=== PATIENT | male | born 1940 | race Caucasian/White ===

== ENCOUNTER 2022-07-23 17:12 | Emergency (ER) | payer MEDICARE, OTHER, SELFPAY ==
[2022-07-23] VITALS (9 sets, daily range): BP systolic 110–152; BP diastolic 75–89; PULSE 80–101; RESP 15–25; TEMP 36.4; O2SAT 94–97; BMI 26.0
--- NOTE | 2022-07-23 17:37 | DI.RAD.S_ITS ---
PROCEDURE: XR CHEST 1V INDICATIONS: chest pain TECHNIQUE: One view of the chest was acquired. COMPARISON: None. FINDINGS: Surgical changes and devices: Surgical hardware in lower cervical spine is seen. Lungs and pleura: Mild elevation of right hemidiaphragm is seen with right basilar atelectasis. No definite focal infiltrate. No pleural effusions or pneumothorax. Mediastinum: Mediastinal contours appear normal. Heart size is normal. Bones and chest wall: No suspicious bony lesions. Overlying soft tissues appear unremarkable. IMPRESSION: Right basilar atelectasis and elevation of right hemidiaphragm. No focal infiltrate, pleural effusion or pneumothorax. Dictated by: Raudel Ramirez M.D. on 07/23/2022 at 18:06 Approved by: Raudel Ramirez M.D. on 07/23/2022 at 18:06
[2022-07-23 18:00] LABS: Add Manual Diff / Slide Review NO; Basophils Absolute Auto 0 /uL (0-100); Basophils Percent Auto 0.9 % (0-2); Eosinophils Absolute Auto 0 /uL (0-450); Eosinophils Percent Auto 0.1 % (2-4); Hematocrit 42.1 % (41-53); Hemoglobin 14.7 g/dL (13.5-17.5); Lymphocytes Absolute Auto 1400 /uL (1100-4500); Lymphocytes Percent Auto 32.4 % (25-40); Mean Corpuscular HGB Conc 34.8 % (30-36); Mean Corpuscular Hemoglobin 35.1 PG (26-34); Mean Corpuscular Volume 100.7 fL (80-100); Monocytes Absolute Auto 400 /uL (0-900); Monocytes Percent Auto 8.5 % (3-14); Neutrophils Absolute Auto 2500 /uL (1500-7000); Neutrophils Percent Auto 58.1 % (50-75); Platelet Count 96 X10^3/uL (150-400); Red Blood Cell Count 4.18 X10^6/uL (4.5-5.9); Red Cell Distribution Width 14.5 % (11.6-14.8); White Blood Cell Count 4.4 X10^3/uL (4.5-11.0)
[2022-07-23 18:06] LABS: INR 1.4 (0.9-1.3); Prothrombin Time 15.6 SECONDS (10.1-12.7)
[2022-07-23 18:08] LABS: PTT Partial Thromboplastin Tim 32 SECONDS (26-36)
[2022-07-23 18:12] LABS: Alanine Aminotransferase 37 IU/L (<50); Albumin 4.5 g/dL (3.5-5.0); Albumin Globulin Ratio 1.4 (1.0-2.8); Alkaline Phosphatase 63 U/L (38-126); Aspartate Aminotransferase 31 IU/L (17-59); BUN Creatinine Ratio 21.7 (6-22); Bilirubin Total 1.3 mg/dL (0.2-1.3); Blood Urea Nitrogen 15 mg/dL (9-20); Calcium 8.9 mg/dL (8.4-10.2); Carbon Dioxide 23 mmol/L (22-32); Chloride 104 mmol/L (98-107); Creatine Kinase 71 U/L (55-170); Estimated Glomerular Filt Rate > 60 mL/min (>60); Globulin 3.3 g/dL (1.7-4.1); Glucose 87 mg/dL (80-110); HEMOLYSIS 23 (0-50); Lipase 131 U/L (23-300); Magnesium 1.9 mg/dL (1.6-2.3); Potassium 4.1 mmol/L (3.4-5.1); Sodium 136 mmol/L (137-145); Total Protein 7.8 g/dL (6.3-8.2)
[2022-07-23 18:23] LABS: Troponin I < 0.012 ng/mL (0.01-0.034)
--- NOTE | 2022-07-23 19:41 | PC.NURSE ---
Patient reports long standing hx of AFIB with ablations with most recent 4-5 months ago. Was changed from sotolol to metoprolol because last ablation was unsuccessful and has been on metoprolol for 4 days. Has been checking HR at home and averages 85-90. Reports hx of panic attacks but states this doesn't feel like his usual aura and almost didn't come in but decided to have it checked out. Denies pain, SOB, n/v and all other symptoms.
--- NOTE | 2022-07-23 21:25 | ED.CHESTPAIN ---
HPI - Chest Pain General Chief Complaint: Chest Pain Stated Complaint: Chest pain Time Seen by Provider: 07/23/22 21:24 History of Present Illness HPI narrative: 81-year-old gentleman with history of longstanding atrial fibrillation currently on metoprolol after sotalol has been discontinued presents with left-sided chest pain intermittently every 5 minutes. Nurse initiated orders were started. After waiting brief period of time patient chose to leave the department before full medical evaluation. Related Data Home Medications Medication Instructions Recorded Confirmed atorvastatin 20 mg tablet 20 mg PO BEDTIME 02/03/21 06/08/22 ferrous gluconate 240 mg (27 mg 240 mg PO DAILY 02/03/21 06/08/22 iron) tablet (Fergon) fluticasone fur. 100 mcg-umeclid 1 inh inhalation DAILY 02/03/21 06/08/22 62.5 mcg-vilant 25 mcg inhalat.powder (Trelegy Ellipta) triamcinolone acetonide 0.1 % 1 applic topical DAILY PRN 02/03/21 06/08/22 lotion valacyclovir 1 gram tablet 1,000 mg PO DAILY PRN 02/03/21 06/08/22 lorazepam 0.5 mg tablet 0.5 mg PO .PRN PRN dental 06/08/22 06/08/22 appointment potassium citrate 99 mg capsule mg PO 2XW 06/08/22 06/08/22 apixaban 5 mg tablet (Eliquis) 5 mg PO BID 07/23/22 07/23/22 metoprolol succinate 50 mg 50 mg PO DAILY 07/23/22 07/23/22 tablet,extended release 24 hr Allergies Allergy/AdvReac Type Severity Reaction Status Date / Time No Known Drug Allergies Allergy Verified 07/23/22 17:24 Review of Systems Review of Systems Narrative: Patient left prior to complete evaluation and history Patient History Medical History (Updated 07/23/22 @ 21:33 by Parris Oliveira MD) Atrial fibrillation (~2012) Cataracts, bilateral (~2014) Chicken pox (~1949) Chronic back pain (~2018) COPD (chronic obstructive pulmonary disease) (~2019) History of melanoma Hyperlipidemia Hypertension Mumps Shoulder pain (~2019) Thoracic back pain Tinnitus (~1967) Social History Smoking Status: Former smoker Smoking Status: Former smoker alcohol intake frequency: 0-2 drinks per day Alcohol type: hard liquor Substance Use Type: does not use Exam Initial Vital Signs Initial Vital Signs: Vital Signs Temperature 97.6 F 07/23/22 17:18 Pulse Rate 80 07/23/22 17:18 Respiratory Rate 16 07/23/22 17:18 Blood Pressure 122/84 07/23/22 17:18 Pulse Oximetry 97 07/23/22 17:18 Oxygen Delivery Method Room Air 07/23/22 17:18 Comfortable appearing, appropriate, able to walk out of the ointment the steady gait no chest pain and no dyspnea Course Orders Ordered: ED Orders 07/23/22 17:30 Complete Blood Count AUTO DIFF Stat Comprehensive Metabolic Panel Stat Lipase Stat Magnesium Stat PTT Partial Thromboplastin Rodrick Stat Prothrombin Time INR Stat Troponin & CK Cardiac Panel Stat 07/23/22 17:37 XR chest 1V Stat 07/23/22 17:41 EKG-12 Lead Stat Vital Signs Vital signs: Vital Signs - 8 hr 07/23/22 17:18 07/23/22 18:37 07/23/22 18:38 Temperature 97.6 F Pulse Rate 80 90 Respiratory Rate 16 25 H Blood Pressure 122/84 152/89 H Pulse Oximetry 97 Oxygen Delivery Method Room Air 07/23/22 18:38 07/23/22 19:00 07/23/22 19:01 Temperature Pulse Rate 91 H 101 H 101 H Respiratory Rate 18 17 18 Blood Pressure Pulse Oximetry 94 96 96 Oxygen Delivery Method 07/23/22 19:01 07/23/22 19:30 07/23/22 19:30 Temperature Pulse Rate 96 H Respiratory Rate 17 Blood Pressure 110/77 114/75 Pulse Oximetry 96 Oxygen Delivery Method 07/23/22 20:00 07/23/22 20:30 07/23/22 21:00 Temperature Pulse Rate 93 H 98 H 92 H Respiratory Rate 16 15 18 Blood Pressure Pulse Oximetry 97 97 96 Oxygen Delivery Method MDM - Chest Pain Lab Data 07/23/22 17:30 07/23/22 17:30 Labs: Lab Results 07/23/22 07/23/22 07/23/22 Range/Units 17:30 17:30 17:30 WBC 4.4 L (4.5-11.0) X10^3/uL RBC 4.18 L (4.5-5.9) X10^6/uL Hgb 14.7 (13.5-17.5) g/dL Hct 42.1 (41-53) % MCV 100.7 H (80-100) fL MCH 35.1 H (26-34) PG MCHC 34.8 (30-36) % RDW 14.5 (11.6-14.8) % Plt Count 96 L (150-400) X10^3/uL Neut % (Auto) 58.1 (50-75) % Lymph % (Auto) 32.4 (25-40) % [place] % (Auto) 8.5 (3-14) % Eos % (Auto) 0.1 L (2-4) % Baso % (Auto) 0.9 (0-2) % Neut # (Auto) 2500 (6079-5684) /uL Lymph # (Auto) 1400 (7542-8316) /uL [place] # (Auto) 400 (0-900) /uL Eos # (Auto) 0 (0-450) /uL Baso # (Auto) 0 (0-100) /uL PT 15.6 H (10.1-12.7) SECONDS INR 1.4 H (0.9-1.3) APTT 32 (26-36) SECONDS Sodium 136 L (137-145) mmol/L Potassium 4.1 (3.4-5.1) mmol/L Chloride 104 (98-107) mmol/L Carbon Dioxide 23 (22-32) mmol/L BUN 15 (9-20) mg/dL Creatinine 0.69 (0.66-1.25) mg/dL Estimated GFR > 60 (>60) mL/min BUN/Creatinine Ratio 21.7 (6-22) Glucose 87 (80-110) mg/dL Calcium 8.9 (8.4-10.2) mg/dL Magnesium 1.9 (1.6-2.3) mg/dL Total Bilirubin 1.3 (0.2-1.3) mg/dL AST 31 (17-59) IU/L ALT 37 (<50) IU/L Alkaline Phosphatase 63 (38-126) U/L Total Creatine Kinase 71 (55-170) U/L CK-MB (CK-2) TNP CK-MB (CK-2) Rel Index TNP Troponin I < 0.012 (0.01-0.034) ng/mL Total Protein 7.8 (6.3-8.2) g/dL Albumin 4.5 (3.5-5.0) g/dL Globulin 3.3 (1.7-4.1) g/dL Albumin/Globulin Ratio 1.4 (1.0-2.8) Lipase 131 (23-300) U/L Urine Dip Bedside Urine Glucose Negative Bedside Urine Bilirubin - Negative Bedside Urine Ketone - Negative Urine Specific [place] 1.030 Bedside Urine Occult Blood - Negative Bedside Urine pH 6.0 Bedside Urine Protein - Negative Bedside Urine Urobilinogen - Negative Bedside Urine Nitrite - Negative Bedside Urine Leukocytes - Negative Esterase MDM Narrative Medical decision making narrative: CC: Chest pain Complicating co-morbidities: chronic a fib, anticoagulated Data collected from: patient, Patient chose to leave department prior to additional evaluation including complete physical and exam. Lab Test results independently reviewed as above. Pertinent findings: CBC shows no acute anemia, white count of 4.4, platelets are 96 no prior labs are immediately available for comparison Chemistries are reassuring with normal creatinine Troponin is unremarkable Independently reviewed EKG as above Atrial fibrillation at a rate of 85, no acute ischemic changes Imaging studies independently reviewed: Chest x-ray shows basilar atelectasis without obvious congestive heart failure, bacterial infiltrate or pneumothorax Discussion: Patient left against medical advice prior to completing evaluation or discussing available labs and studies. Discharge Plan Departure Patient Disposition: Left Without Being Seen Clinical Impression: Patient left before evaluation by physician Chest pain Qualifiers: Chest pain type: unspecified Qualified Code(s): R07.9 - Chest pain, unspecified Atrial fibrillation Qualifiers: Atrial fibrillation type: longstanding persistent Qualified Code(s): I48.11 - Longstanding persistent atrial fibrillation Prescriptions: No Action potassium citrate 99 mg capsule PO 2XW lorazepam 0.5 mg tablet 0.5 mg PO .PRN PRN (Reason: dental appointment) Trelegy Ellipta 100-62.5-25 mcg blister with device 1 inh inhalation DAILY valacyclovir 1 gram tablet 1,000 mg PO DAILY PRN triamcinolone acetonide 0.1 % lotion 1 applic topical DAILY PRN atorvastatin 20 mg tablet 20 mg PO BEDTIME ferrous gluconate [Fergon] 240 mg (27 mg iron) tablet 240 mg PO DAILY Eliquis 5 mg tablet 5 mg PO BID metoprolol succinate 50 mg tablet extended release 24 hr 50 mg PO DAILY
== END 2022-07-23 21:27 | disposition left against medical advice (07) ==
PROVIDERS: Emergency Medicine; Emergency Provider Emergency Medicine; PCP Family Medicine
DX: R07.9 Chest pain, unspecified (principal)
CPT/HCPCS: 36415; 71045; 80053; 81003; 82550; 83690; 83735; 84484; 85025; 85610; 85730; 93005; 93010; 99284

== ENCOUNTER → 2023-07-23 08:48 | Outpatient (CLI) | payer MEDICARE, OTHER, SELFPAY ==
[2023-07-23 09:55] LABS: Add Manual Diff / Slide Review NO; Basophils Absolute Auto 0 /uL (0-100); Basophils Percent Auto 0.9 % (0-2); Eosinophils Absolute Auto 0 /uL (0-450); Eosinophils Percent Auto 0.1 % (2-4); Hematocrit 43.2 % (41-53); Hemoglobin 14.9 g/dL (13.5-17.5); Lymphocytes Absolute Auto 1300 /uL (1100-4500); Lymphocytes Percent Auto 27.6 % (25-40); Mean Corpuscular HGB Conc 34.6 % (30-36); Mean Corpuscular Hemoglobin 35.7 PG (26-34); Mean Corpuscular Volume 103.2 fL (80-100); Monocytes Absolute Auto 400 /uL (0-900); Monocytes Percent Auto 7.6 % (3-14); Neutrophils Absolute Auto 3000 /uL (1500-7000); Neutrophils Percent Auto 63.8 % (50-75); Platelet Count 97 X10^3/uL (150-400); Red Blood Cell Count 4.18 X10^6/uL (4.5-5.9); Red Cell Distribution Width 14.1 % (11.6-14.8); White Blood Cell Count 4.7 X10^3/uL (4.5-11.0)
[2023-07-23 10:45] LABS: Alanine Aminotransferase 31 IU/L (<50); Albumin 4.7 g/dL (3.5-5.0); Albumin Globulin Ratio 1.7 (1.0-2.8); Alkaline Phosphatase 55 U/L (38-126); Aspartate Aminotransferase 30 IU/L (17-59); Blood Urea Nitrogen 17 mg/dL (9-20); Calcium 8.8 mg/dL (8.4-10.2); Carbon Dioxide 28 mmol/L (22-32); Chloride 108 mmol/L (98-107); Cholesterol 170 mg/dL (140-199); Estimated Glomerular Filt Rate > 60 mL/min (>60); Globulin 2.8 g/dL (1.7-4.1); Glucose 96 mg/dL (80-110); HDL Cholesterol 88 mg/dL (40-60); HEMOLYSIS < 15 (0-50); LDL Cholesterol Calculated 69 mg/dL (<100); Potassium 4.7 mmol/L (3.4-5.1); Sodium 139 mmol/L (137-145); Total Protein 7.5 g/dL (6.3-8.2); Triglycerides 64 mg/dL (35-150)
[2023-07-23 11:11] LABS: TSH w/ Reflex to FT4 3.56 uIU/mL (0.47-4.68)
[2023-07-23 11:12] LABS: Prostate Specific Antigen Scrn 6.36 ng/mL (0.1-4.0)
[2023-07-23 11:42] LABS: Hep C Virus Ab w/Reflex Quant NEGATIVE s/c (NEGATIVE)
[2023-07-23 12:12] LABS: Creatinine Urine Random 107.21 mg/dL
[2023-07-23 12:16] LABS: Microalbumin Urine Random 0.8 mg/dL (0-1.6)
[2023-07-24 06:53] LABS: Apolipoprotein B 65 mg/dL (<90)
== END ==
PROVIDERS: PCP Family Medicine; Referring Provider Family Medicine; Visit Provider Family Medicine
DX: J44.9 Chronic obstructive pulmonary disease, unspecified (principal); I10 Essential (primary) hypertension; Z12.5 Encounter for screening for malignant neoplasm of prostate; E78.5 Hyperlipidemia, unspecified; I48.91 Unspecified atrial fibrillation
CPT/HCPCS: 36415; 80053; 80061; 82043; 82172; 82570; 84443; 85025; 86803; G0103

== ENCOUNTER 2024-01-07 15:12 | Emergency (ER) | payer MEDICARE, OTHER, SELFPAY ==
[2024-01-07] VITALS (27 sets, daily range): BP systolic 132–166; BP diastolic 65–96; PULSE 58–122; RESP 18–32; TEMP 36.8–39.4; O2SAT 90–95; BMI 26.9
--- NOTE | 2024-01-07 15:29 | DI.RAD.S_ITS ---
PROCEDURE: XR CHEST 1V INDICATIONS: chest pain TECHNIQUE: One view of the chest was acquired. COMPARISON: [facility], CR, XR CHEST 1V, 07/23/2022, 17:53. FINDINGS: Surgical changes and devices: ACDF. Lungs and pleura: Left upper lung zone consolidation. Elevation of the right hemidiaphragm. Mediastinum: Mediastinal contours appear normal. Heart size is normal. Bones and chest wall: No suspicious bony lesions. Overlying soft tissues appear unremarkable. IMPRESSION: Left upper lung zone consolidation, concerning for pneumonia. Recommend follow-up in 1-2 months with chest x-ray to ensure resolution. Dictated by: Jose Raymundo M.D. on 01/07/2024 at 16:08 Approved by: Jose Raymundo M.D. on 01/07/2024 at 16:08
--- NOTE | 2024-01-07 15:31 | EKG_ITS ---
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
[2024-01-07 16:18] LABS: Add Manual Diff / Slide Review NO; Basophils Absolute Auto 0 /uL (0-100); Basophils Percent Auto 0.3 % (0-2); Eosinophils Absolute Auto 0 /uL (0-450); Hematocrit 44.3 % (41-53); Hemoglobin 15.3 g/dL (13.5-17.5); INR 1.8 (0.9-1.3); Lymphocytes Absolute Auto 500 /uL (1100-4500); Lymphocytes Percent Auto 7.9 % (25-40); Mean Corpuscular HGB Conc 34.6 % (30-36); Mean Corpuscular Hemoglobin 35.1 PG (26-34); Mean Corpuscular Volume 101.4 fL (80-100); Monocytes Absolute Auto 500 /uL (0-900); Monocytes Percent Auto 6.9 % (3-14); Neutrophils Absolute Auto 5600 /uL (1500-7000); Neutrophils Percent Auto 84.9 % (50-75); Platelet Count 100 X10^3/uL (150-400); Prothrombin Time 19.8 SECONDS (9.4-12.5); Red Blood Cell Count 4.37 X10^6/uL (4.5-5.9); Red Cell Distribution Width 13.5 % (11.6-14.8); White Blood Cell Count 6.6 X10^3/uL (4.5-11.0)
[2024-01-07 16:21] LABS: PTT Partial Thromboplastin Tim 41 SECONDS (25.1-36.5)
[2024-01-07 16:22] LABS: Alanine Aminotransferase 49 IU/L (<50); Albumin 4.4 g/dL (3.5-5.0); Albumin Globulin Ratio 1.1 (1.0-2.8); Alkaline Phosphatase 63 U/L (38-126); Aspartate Aminotransferase 72 IU/L (17-59); BUN Creatinine Ratio 18.9 (6-22); Bilirubin Total 1.6 mg/dL (0.2-1.3); Blood Urea Nitrogen 18 mg/dL (9-20); Calcium 8.8 mg/dL (8.4-10.2); Carbon Dioxide 23 mmol/L (22-32); Chloride 98 mmol/L (98-107); Creatine Kinase 172 U/L (55-170); Estimated Glomerular Filt Rate > 60 mL/min (>60); Globulin 3.9 g/dL (1.7-4.1); Glucose 124 mg/dL (80-110); HEMOLYSIS < 15 (0-50); Lipase 98 U/L (23-300); Magnesium 2.2 mg/dL (1.6-2.3); Sodium 130 mmol/L (137-145); Total Protein 8.3 g/dL (6.3-8.2)
[2024-01-07 16:34] LABS: NT-proBNP (BNP-Adult 18+) 2420 pg/mL (<450); Troponin I < 0.012 ng/mL (0.01-0.034)
[2024-01-07 16:36] LABS: Adenovirus Not Detected (Not Detect); B. parapertussis Not Detected (Not Detecte); Bordetella pertussis Not Detected (Not Detect); Chlamydophila pneumoniae Not Detected (Not Detect); Coronavirus 229E Not Detected (Not Detect); Coronavirus HKU1 Not Detected (Not Detect); Coronavirus NL 63 Not Detected (Not Detect); Coronavirus OC43 Not Detected (Not Detect); Human Metapneumovirus Not Detected (Not Detect); Human Rhinovirus/Enterovirus Not Detected (Not Detect); Influenza A Not Detected (Not Detect); Influenza B Not Detected (Not Detect); Mycoplasma pneumoniae Not Detected (Not Detect); Parainfluenza Virus 1 Not Detected (Not Detect); Parainfluenza Virus 2 Not Detected (Not Detect); Parainfluenza Virus 3 Not Detected (Not Detect); Parainfluenza Virus 4 Not Detected (Not Detect); Respiratory Syncytial Virus Not Detected (Not Detect); SARS- CoV-2 Not Detected (Not Detecte)
--- NOTE | 2024-01-07 19:30 | PC.NURSE ---
Dr Ortega notified of fever and updated VS. Orders received for BC, lactic acid, resp panel.
[2024-01-07] MEDS: PIPERACILLIN/TAZO 4.5 GM in SODIUM CHLORIDE 0.9% 100 ML IV (19:48)
--- NOTE | 2024-01-07 20:12 | ED.WEAKNESS ---
HPI - Weakness General Chief complaint: Weakness Stated complaint: weakness Time Seen by Provider: 01/07/24 19:31 Source: EMS Mode of arrival: EMS History of Present Illness HPI Narrative: Patient 83-year-old male history of COPD atrial fibrillation on Eliquis presenting today with 4 days of fever and increasing weakness. He does live home alone but has family right next door. Reports he has had a temperature of 103?. He denies any pain or nausea. He does report that he has a productive cough. No abdominal pain he was not pass out. Related Data Home Medications Medication Instructions Recorded Confirmed atorvastatin 20 mg tablet 20 mg PO BEDTIME 02/03/21 07/24/23 ferrous gluconate 240 mg (27 mg 240 mg PO DAILY 02/03/21 07/24/23 iron) tablet (Fergon) lorazepam 0.5 mg tablet 0.5 mg PO .PRN PRN dental 06/08/22 07/24/23 appointment apixaban 5 mg tablet (Eliquis) 5 mg PO BID 07/23/22 07/24/23 metoprolol succinate 50 mg 50 mg PO DAILY 07/23/22 07/24/23 tablet,extended release 24 hr Magnesium OTC PO 07/24/23 07/24/23 Potassium OTC PO 07/24/23 carboxymethylcellulose 0.5 drp EYE-BOTH 07/24/23 07/24/23 %-glycerin 0.9 % eye drops (Refresh Optive) fluorouracil 5 % topical cream 1 applic topical BID 07/24/23 07/24/23 Previous Rx's Medication Instructions Recorded triamcinolone acetonide 0.1 % 1 applic topical DAILY #60 mL 07/16/23 lotion fluticasone fur. 100 mcg-umeclid 1 inh PO DAILY #180 ea 08/05/23 62.5 mcg-vilant 25 mcg inhalat.powder (Trelegy Ellipta) valacyclovir 1 gram tablet 1,000 mg PO DAILY PRN As needed 12/02/23 for outbreak #30 tabs amoxicillin 500 mg capsule 1,000 mg (2 x 500 mg) PO TID 7 01/07/24 days #42 caps azithromycin 250 mg tablet See Rx Instructions PO .COMPLEX #6 01/07/24 tabs Allergies Allergy/AdvReac Type Severity Reaction Status Date / Time No Known Drug Allergies Allergy Verified 01/07/24 15:19 Patient History Medical History (Updated 01/07/24 @ 21:58 by Alaina Ortega DO) Thrombocytopenia History of melanoma Shoulder pain (~2019) Chronic back pain (~2018) Mumps Chicken pox (~1949) Tinnitus (~1967) Cataracts, bilateral (~2014) COPD (chronic obstructive pulmonary disease) (~2019) Thoracic back pain Hypertension Hyperlipidemia Atrial fibrillation (~2012) Social History Smoking Status: Former smoker Smoking Status: Former smoker alcohol intake frequency: 0-2 drinks per day Alcohol type: hard liquor Substance Use Type: does not use Exam Initial Vital Signs Initial Vital Signs: Vital Signs Pulse Rate 60 01/07/24 15:16 Pulse Oximetry 93 01/07/24 15:16 GENERAL: Alert 83-year-old male and in [no acute] distress. HEENT: Head atraumatic,EOMI, pupils reactive, face symmetric, [moist] mucous membranes CARDIOVASCULAR: Regular rate and rhythm without murmurs, rubs or gallops. RESPIRATORY: Dyspneic decreased breath sounds bilaterally no wheezing rales or rhonchi ABDOMEN: Soft, nontender. Normoactive bowel sounds all 4 quadrants. No guarding or rebound. EXTREMITIES: Normal range of motion, no clubbing or edema. Neurovascularly intact NEUROLOGICAL: Alert and oriented x4.Normal gait and speech. Cranial nerves II through XII grossly intact. SKIN: Warm, dry, no laceration, no petechiae, no rashes or lesions. Course Orders Ordered: ED Orders 01/07/24 19:50 Blood Culture Stat Lactate (Lactic Acid) Stat 01/07/24 20:31 Ictotest Urine Stat Urine Culture Stat Urine Microscopic Stat Discontinued Medications Acetaminophen (Acetaminophen 325 Mg Tablet) 975 mg PO NOW ONE Stop: 01/07/24 20:42 Last Admin: 01/07/24 20:55 Dose: 975 mg Documented By: THANG Albuterol (Albuterol Hfa Prepack) 1 box MISC DIRECTED ONE Stop: 01/07/24 21:50 Last Admin: 01/07/24 21:58 Dose: 1 box Documented By: SHEILA Albuterol/Ipratropium (Albuterol/Ipratropium 3 Ml Ampul) 3 ml INH NOW ONE Stop: 01/07/24 21:17 Last Admin: 01/07/24 21:22 Dose: 3 ml Documented By: SHEILA Amoxicillin (Amoxicillin 250 Mg Capsule) 1,000 mg PO NOW ONE Stop: 01/07/24 21:44 Last Admin: 01/07/24 22:06 Dose: 1,000 mg Documented By: LAVONNE Azithromycin (Azithromycin 250 Mg Tablet) 500 mg PO NOW ONE Stop: 01/07/24 21:44 Last Admin: 01/07/24 22:06 Dose: 500 mg Documented By: LAVONNE Piperacillin Sod/Tazobactam (Sod 4.5 gm/ Sodium Chloride) 100 mls @ 200 mls/hr IV NOW ONE Stop: 01/07/24 19:32 Last Infusion: 01/07/24 20:23 Dose: Infused Documented By: Admin: 01/07/24 19:48 Dose: 200 mls/hr Documented By: LAVONNE Vital Signs Vital signs: Vital Signs - 8 hr 01/07/24 19:25 01/07/24 19:30 01/07/24 19:31 Temperature 102.9 F H Pulse Rate 100 H 90 79 Respiratory Rate 28 H 32 H 29 H Blood Pressure Pulse Oximetry 93 93 92 Oxygen Delivery Method Room Air Oxygen Flow Rate Fraction of Inspired Oxygen 01/07/24 19:31 01/07/24 20:00 01/07/24 20:00 Temperature Pulse Rate 73 Respiratory Rate Blood Pressure 156/85 H 134/66 Pulse Oximetry 93 Oxygen Delivery Method Oxygen Flow Rate Fraction of Inspired Oxygen 01/07/24 20:24 01/07/24 20:24 01/07/24 20:30 Temperature Pulse Rate 122 H Respiratory Rate Blood Pressure 151/96 H 146/66 H Pulse Oximetry Oxygen Delivery Method Oxygen Flow Rate Fraction of Inspired Oxygen 01/07/24 20:30 01/07/24 20:55 01/07/24 21:00 Temperature 102.9 F H Pulse Rate 70 Respiratory Rate Blood Pressure 166/82 H Pulse Oximetry 93 Oxygen Delivery Method Oxygen Flow Rate Fraction of Inspired Oxygen 01/07/24 21:00 01/07/24 21:15 01/07/24 21:22 Temperature 102.9 F H Pulse Rate 74 108 H Respiratory Rate 20 Blood Pressure Pulse Oximetry 93 90 L Oxygen Delivery Method Room Air Oxygen Flow Rate 0 Fraction of Inspired Oxygen 01/07/24 21:30 01/07/24 21:31 01/07/24 21:31 Temperature Pulse Rate 91 H 90 Respiratory Rate Blood Pressure 146/70 H Pulse Oximetry 93 93 Oxygen Delivery Method Oxygen Flow Rate Fraction of Inspired Oxygen 01/07/24 21:39 01/07/24 21:39 01/07/24 21:41 Temperature Pulse Rate 102 H Respiratory Rate 22 Blood Pressure 140/65 Pulse Oximetry 91 93 Oxygen Delivery Method Oxygen Flow Rate Fraction of Inspired Oxygen 01/07/24 22:20 Temperature 98.2 F Pulse Rate Respiratory Rate Blood Pressure Pulse Oximetry Oxygen Delivery Method Oxygen Flow Rate Fraction of Inspired Oxygen MDM - Weakness Lab Data 01/07/24 15:00 01/07/24 15:00 Labs: Lab Results 01/07/24 01/07/24 01/07/24 Range/Units 15:00 15:36 19:50 WBC 6.6 (4.5-11.0) X10^3/uL RBC 4.37 L (4.5-5.9) X10^6/uL Hgb 15.3 (13.5-17.5) g/dL Hct 44.3 (41-53) % MCV 101.4 H (80-100) fL MCH 35.1 H (26-34) PG MCHC 34.6 (30-36) % RDW 13.5 (11.6-14.8) % Plt Count 100 L (150-400) X10^3/uL Neut % (Auto) 84.9 H (50-75) % Lymph % (Auto) 7.9 L (25-40) % [place] % (Auto) 6.9 (3-14) % Eos % (Auto) 0.0 L (2-4) % Baso % (Auto) 0.3 (0-2) % Neut # (Auto) 5600 (7496-1985) /uL Lymph # (Auto) 500 L (4825-5148) /uL [place] # (Auto) 500 (0-900) /uL Eos # (Auto) 0 (0-450) /uL Baso # (Auto) 0 (0-100) /uL PT 19.8 H (9.4-12.5) SECONDS INR 1.8 H (0.9-1.3) APTT 41 H (25.1-36.5) SECONDS Sodium 130 L (137-145) mmol/L Potassium 4.0 (3.4-5.1) mmol/L Chloride 98 (98-107) mmol/L Carbon Dioxide 23 (22-32) mmol/L BUN 18 (9-20) mg/dL Creatinine 0.95 (0.66-1.25) mg/dL Estimated GFR > 60 (>60) mL/min BUN/Creatinine Ratio 18.9 (6-22) Glucose 124 H (80-110) mg/dL Lactate 1.4 (0.7-2.1) mmol/L Calcium 8.8 (8.4-10.2) mg/dL Magnesium 2.2 (1.6-2.3) mg/dL Total Bilirubin 1.6 H (0.2-1.3) mg/dL AST 72 H (17-59) IU/L ALT 49 (<50) IU/L Alkaline Phosphatase 63 (38-126) U/L Total Creatine Kinase 172 H (55-170) U/L Troponin I < 0.012 (0.01-0.034) ng/mL NT-Pro-B Natriuret Pep 2420 H (<450) pg/mL Total Protein 8.3 H (6.3-8.2) g/dL Albumin 4.4 (3.5-5.0) g/dL Globulin 3.9 (1.7-4.1) g/dL Albumin/Globulin Ratio 1.1 (1.0-2.8) Lipase 98 (23-300) U/L Ur Bilirubin Confirm (Negative) Urine RBC (0-5/HPF) Urine WBC (0-5/HPF) Ur Squamous Epith Cells (0-5/HPF) Urine Bacteria (None) Ur Culture Indicated? Vol Urine Centrifuged Chlamy pneumoniae PCR Not detected (Not Detect) Adenovirus (PCR) Not detected (Not Detect) B. pertussis DNA (PCR) Not detected (Not Detect) B.parapertussis DNA PCR Not detected (Not Detecte) Coronavirus OC43 (PCR) Not detected (Not Detect) Coronavirus HKU1 (PCR) Not detected (Not Detect) Coronavirus 229E (PCR) Not detected (Not Detect) SARS-CoV-2 (PCR) Not detected (Not Detecte) Coronavirus NL63 (PCR) Not detected (Not Detect) Human Metapneumovir PCR Not detected (Not Detect) Influenza Type A (PCR) Not detected (Not Detect) Influenza Type B (PCR) Not detected (Not Detect) M. pneumoniae (PCR) Not detected (Not Detect) Parainfluenza 1 (PCR) Not detected (Not Detect) Parainfluenza 2 (PCR) Not detected (Not Detect) Parainfluenza 3 (PCR) Not detected (Not Detect) Parainfluenza 4 (PCR) Not detected (Not Detect) RSV (PCR) Not detected (Not Detect) Entero/Rhino (PCR) Not detected (Not Detect) 01/07/24 Range/Units 20:31 WBC (4.5-11.0) X10^3/uL RBC (4.5-5.9) X10^6/uL Hgb (13.5-17.5) g/dL Hct (41-53) % MCV (80-100) fL MCH (26-34) PG MCHC (30-36) % RDW (11.6-14.8) % Plt Count (150-400) X10^3/uL Neut % (Auto) (50-75) % Lymph % (Auto) (25-40) % [place] % (Auto) (3-14) % Eos % (Auto) (2-4) % Baso % (Auto) (0-2) % Neut # (Auto) (0544-2507) /uL Lymph # (Auto) (1123-9546) /uL [place] # (Auto) (0-900) /uL Eos # (Auto) (0-450) /uL Baso # (Auto) (0-100) /uL PT (9.4-12.5) SECONDS INR (0.9-1.3) APTT (25.1-36.5) SECONDS Sodium (137-145) mmol/L Potassium (3.4-5.1) mmol/L Chloride (98-107) mmol/L Carbon Dioxide (22-32) mmol/L BUN (9-20) mg/dL Creatinine (0.66-1.25) mg/dL Estimated GFR (>60) mL/min BUN/Creatinine Ratio (6-22) Glucose (80-110) mg/dL Lactate (0.7-2.1) mmol/L Calcium (8.4-10.2) mg/dL Magnesium (1.6-2.3) mg/dL Total Bilirubin (0.2-1.3) mg/dL AST (17-59) IU/L ALT (<50) IU/L Alkaline Phosphatase (38-126) U/L Total Creatine Kinase (55-170) U/L Troponin I (0.01-0.034) ng/mL NT-Pro-B Natriuret Pep (<450) pg/mL Total Protein (6.3-8.2) g/dL Albumin (3.5-5.0) g/dL Globulin (1.7-4.1) g/dL Albumin/Globulin Ratio (1.0-2.8) Lipase (23-300) U/L Ur Bilirubin Confirm Positive H (Negative) Urine RBC 5-10/hpf H (0-5/HPF) Urine WBC 5-10/hpf H (0-5/HPF) Ur Squamous Epith Cells 5-10 /hpf H (0-5/HPF) Urine Bacteria Moderate (10-30) H (None) Ur Culture Indicated? Specimen cultured Vol Urine Centrifuged 10ml (spun) Chlamy pneumoniae PCR (Not Detect) Adenovirus (PCR) (Not Detect) B. pertussis DNA (PCR) (Not Detect) B.parapertussis DNA PCR (Not Detecte) Coronavirus OC43 (PCR) (Not Detect) Coronavirus HKU1 (PCR) (Not Detect) Coronavirus 229E (PCR) (Not Detect) SARS-CoV-2 (PCR) (Not Detecte) Coronavirus NL63 (PCR) (Not Detect) Human Metapneumovir PCR (Not Detect) Influenza Type A (PCR) (Not Detect) Influenza Type B (PCR) (Not Detect) M. pneumoniae (PCR) (Not Detect) Parainfluenza 1 (PCR) (Not Detect) Parainfluenza 2 (PCR) (Not Detect) Parainfluenza 3 (PCR) (Not Detect) Parainfluenza 4 (PCR) (Not Detect) RSV (PCR) (Not Detect) Entero/Rhino (PCR) (Not Detect) Urine Dip Bedside Urine Glucose 100 mg/dl Bedside Urine Bilirubin + 1 Bedside Urine Ketone +++ 80 Urine Specific [place] 1.025 Bedside Urine Occult Blood +++ Bedside Urine pH 6.0 Bedside Urine Protein +++ 300 Bedside Urine Urobilinogen +/- 1mg Bedside Urine Nitrite - Negative Bedside Urine Leukocytes +/- 15 Esterase Imaging Data Chest x-ray: Radiologist Impression: PROCEDURE: XR CHEST 1V INDICATIONS: chest pain TECHNIQUE: One view of the chest was acquired. COMPARISON: [facility], CR, XR CHEST 1V, 07/23/2022, 17:53. FINDINGS: Surgical changes and devices: ACDF. Lungs and pleura: Left upper lung zone consolidation. Elevation of the right hemidiaphragm. Mediastinum: Mediastinal contours appear normal. Heart size is normal. Bones and chest wall: No suspicious bony lesions. Overlying soft tissues appear unremarkable. IMPRESSION: Left upper lung zone consolidation, concerning for pneumonia. Recommend follow-up in 1-2 months with chest x-ray to ensure resolution. Dictated by: Jose Raymundo M.D. on 01/07/2024 at 16:08 ECG Data Attestation: I personally reviewed and interpreted this ECG as follows: Interpretation: Atrial fibrillation rate 81 PVC noted right bundle-branch block noted similar to previous EKGs MDM Narrative Medical decision making narrative: MDM CC: Weakness Complicating co-morbidities: COPD atrial fibrillation on Eliquis, hypertension coronary artery disease melanoma Data collected from: Sister also at bedside Medical records reviewed: Prior PCP visit in July of 2023 Differential considered: Viral illness pneumonia CHF ED Exam documented above, pertinent findings include: Decreased breath sounds bilaterally slightly confused no peripheral edema Lab Test results independently reviewed as above. Pertinent findings: Lactate 1.4 WBC 6.6 Respiratory panel negative Bilirubin 1.6 AST 72 ALT 49 Troponin negative BNP is 2420 no priors to compare Independently reviewed EKG as above atrial fibrillation without ischemia Imaging studies independently reviewed: Left upper lobe pneumonia Consultations: none Treatments: Zosyn, amoxicillin azithromycin DuoNeb Re-evaluations: At the time of my evaluation after multiple hours waiting in the ED patient was dyspneic. He received DuoNeb treatment which helped significantly. He ambulated in the ED with a walker O2 sat remained 92% he was able to have conversation and appeared well Discussion: Patient 83 years old multiple comorbidities presenting today with weakness cough. He is found to have a left upper lobe pneumonia. He is not hypoxic or hypotensive he has a normal lactate and normal leukocytosis. Port score severity suggest he could be treated as an outpatient. He was mildly tachycardic with heart rate of 120 at the time he had a temperature heart rate has come down. Patient wants to go home he has sisters who live close by. Instructed sister's to return if worsening confusion PSI/PORT Score: Pneumonia Severity Index for CAP from [employer]Disconnect on 01/07/2024 All calculations should be rechecked by clinician prior to use RESULT SUMMARY: 83 points Risk Class III, 0.9-2.8% mortality. Outpatient or inpatient treatment, depending on clinical judgment. INPUTS: Age ?> 83 years Sex ?> 0 = Male [facility] resident ?> 0 = No Neoplastic disease ?> 0 = No Liver disease history ?> 0 = No CHF history ?> 0 = No Cerebrovascular disease history ?> 0 = No Renal disease history ?> 0 = No Altered mental status ?> 0 = No Respiratory rate >=0 breaths/min ?> 0 = No Systolic blood pressure <90 mmHg ?> 0 = No Temperature <35?C (95?F) or >39.9?C (103.8?F) ?> 0 = No Pulse >=25 beats/min ?> 0 = No pH <7.35 ?> 0 = No BUN >=0 mg/dL or >=1 mmol/L ?> 0 = No Sodium <130 mmol/L ?> 0 = No Glucose >=50 mg/dL or >=4 mmol/L ?> 0 = No Hematocrit <30% ?> 0 = No Partial pressure of oxygen <60 mmHg or <8 kPa ?> 0 = No Pleural effusion on x-ray ?> 0 = No Discharge Plan Departure Patient Disposition: Home Clinical Impression: Pneumonia Instructions: DI for Pneumonia -- Adult Activity Restrictions/Additional Instructions: *You have been diagnosed with pneumonia *What to do: At this time you do have pneumonia. Please stay hydrated eat as tolerated. Recommend Gatorade or Gatorade like product. *Continue to take medications as directed Albuterol 1-2 puffs with spacer every 4 hours if needed for shortness of breath Amoxicillin 1000 mg 3 times a day for 7 days Azithromycin take as directed *Follow up with your primary care provider in 2-3 days or call [phone] *Return to ER if you should have increasing shortness of breath confusion decreased in fluid intake [or] any new, worsening or concerning symptoms Prescriptions: New amoxicillin 500 mg capsule 1,000 mg PO TID 7 Days Qty: 42 0RF azithromycin 250 mg tablet See Rx Instructions PO .COMPLEX Qty: 6 0RF Rx Instructions: For 250 mg dose pack: take 500 mg today (day 1), then 250 mg for 4 days (days 2-5) No Action Trelegy Ellipta 100-62.5-25 mcg blister with device 1 inh PO DAILY Qty: 180 3RF valacyclovir 1 gram tablet 1,000 mg PO DAILY PRN (Reason: As needed for outbreak) Qty: 30 2RF lorazepam 0.5 mg tablet 0.5 mg PO .PRN PRN (Reason: dental appointment) Potassium OTC PO Refresh Optive 0.5-0.9 % drops EYE-BOTH Magnesium OTC PO fluorouracil 5 % cream 1 applic topical BID atorvastatin 20 mg tablet 20 mg PO BEDTIME ferrous gluconate [Fergon] 240 mg (27 mg iron) tablet 240 mg PO DAILY triamcinolone acetonide 0.1 % lotion 1 applic topical DAILY Qty: 60 2RF Eliquis 5 mg tablet 5 mg PO BID metoprolol succinate 50 mg tablet extended release 24 hr 50 mg PO DAILY Referrals: Mk Rudolph MD [Primary Care Provider] - Stand Alone Forms: Patient Portal/API/Survey
[2024-01-07 20:14] LABS: Lactate (Lactic Acid) 1.4 mmol/L (0.7-2.1)
[2024-01-07] MEDS: ACETAMINOPHEN 325 MG TABLET 975 MG PO (20:55)
[2024-01-07 20:56] LABS: Ictotest Urine Positive (Negative)
[2024-01-07 20:57] LABS: Bacteria Urine Moderate (10-30); Culture Indicated Urine Specimen Cultured; RBC Urine 5-10/HPF (0-5/HPF); Squamous Epithelial Cell Urine 5-10 /HPF (0-5/HPF); Urine Volume 10mL (spun); WBC Urine 5-10/HPF (0-5/HPF)
[2024-01-07] MEDS: ALBUTEROL/IPRATROPIUM 3 ML AMPUL INH (21:22)
--- NOTE | 2024-01-07 21:41 | PC.NURSE ---
Pt ambulated in hallway with walker. Tolerated well. SpO2 maintained 92% and above. Pt states he feels well enough to go home. Dr Ortega aware.
[2024-01-07] MEDS: ALBUTEROL HFA PREPACK 1 BOX MISC (21:58)
[2024-01-07] MEDS: AMOXICILLIN 250 MG CAPSULE 1000 MG PO (22:06)
[2024-01-07] MEDS: AZITHROMYCIN 250 MG TABLET 500 MG PO (22:06)
== END 2024-01-07 22:22 | disposition home or self-care (01) ==
PROVIDERS: Emergency Medicine; Emergency Provider Emergency Medicine; PCP Family Medicine
DX: J18.9 Pneumonia, unspecified organism (principal); R07.9 Chest pain, unspecified; I45.10 Unspecified right bundle-branch block; R00.0 Tachycardia, unspecified; R53.1 Weakness; I48.91 Unspecified atrial fibrillation; Z79.01 Long term (current) use of anticoagulants; Z11.52 Encounter for screening for COVID-19
CPT/HCPCS: 36415; 71045; 80053; 81003; 81015; 82550; 83605; 83690; 83735; 83880; 84484; 85025; 85610; 85730; 87040; 87086; 87633; 93005; 96365; 99284; J2543

== ENCOUNTER → 2024-02-20 15:23 | Outpatient (CLI) | payer MEDICARE, OTHER, SELFPAY ==
--- NOTE | 2024-02-20 15:25 | DI.RAD.S_ITS ---
PROCEDURE: XR CHEST 2V INDICATIONS: pneumonia follow up TECHNIQUE: 2 views of the chest were acquired. COMPARISON: [facility], CR, XR CHEST 1V, 01/07/2024, 15:36. [facility], CR, XR CHEST 1V, 07/23/2022, 17:53. FINDINGS: Surgical changes and devices: None. Lungs and pleura: Lungs are now clear in the area of definite pneumonia left upper lobe seen 01/07/24. Chronic asymmetric elevation of the right hemidiaphragm. No pleural effusions or pneumothorax. Mediastinum: Mediastinal contours are normal. Heart size is normal. Bones and chest wall: No suspicious bony abnormalities. Soft tissues appear unremarkable. IMPRESSION: Complete resolution of left upper lobe pneumonia. Stable prominent elevation of the right hemidiaphragm present also in July of 2022 on plain film imaging. Dictated by: Henok Avendano M.D. on 02/20/2024 at 16:52 Approved by: Henok Avendano M.D. on 02/20/2024 at 16:53
== END ==
PROVIDERS: PCP Family Medicine; Referring Provider Family Medicine; Visit Provider Family Medicine
DX: J18.9 Pneumonia, unspecified organism (principal); I10 Essential (primary) hypertension; I48.91 Unspecified atrial fibrillation
CPT/HCPCS: 71046

== ENCOUNTER → 2024-11-06 12:13 | Outpatient (CLI) | payer MEDICARE, OTHER, SELFPAY ==
[2024-11-06 12:35] LABS: Add Manual Diff / Slide Review NO; Hematocrit 42.7 % (41-53); Hemoglobin 14.9 g/dL (13.5-17.5); Lymphocytes Absolute Auto 1400 /uL (1100-4500); Mean Corpuscular HGB Conc 34.9 % (30-36); Mean Corpuscular Hemoglobin 35.2 PG (26-34); Mean Corpuscular Volume 101.0 fL (80-100); Platelet Count 124 X10^3/uL (150-400)
[2024-11-06 12:54] LABS: Hemoglobin A1C% w Est Avg Glu 5.2 % (4.0-6.0)
[2024-11-06 13:29] LABS: Alanine Aminotransferase 25 IU/L (<50); Albumin 4.7 g/dL (3.5-5.0); Albumin Globulin Ratio 1.5 (1.0-2.8); Alkaline Phosphatase 54 U/L (38-126); Blood Urea Nitrogen 11 mg/dL (9-20); Calcium 9.3 mg/dL (8.4-10.2); Carbon Dioxide 26 mmol/L (22-32); Chloride 101 mmol/L (98-107); Cholesterol 154 mg/dL (140-199); Estimated Glomerular Filt Rate > 60 mL/min (>60); Globulin 3.2 g/dL (1.7-4.1); Glucose 82 mg/dL (70-99); HDL Cholesterol 59 mg/dL (40-60); HEMOLYSIS < 15 (0-50); Potassium 4.3 mmol/L (3.4-5.1); Sodium 137 mmol/L (137-145); Total Protein 7.9 g/dL (6.3-8.2); Triglycerides 115 mg/dL (35-150)
[2024-11-06 14:01] LABS: TSH w/ Reflex to FT4 7.72 uIU/mL (0.47-4.68)
[2024-11-06 14:30] LABS: Free T4, Direct Thyroxine 0.90 ng/dL (0.78-2.19)
== END ==
PROVIDERS: PCP Family Medicine; Referring Provider Family Medicine; Visit Provider Family Medicine
DX: I10 Essential (primary) hypertension (principal); I48.11 Longstanding persistent atrial fibrillation; E78.2 Mixed hyperlipidemia; Z12.5 Encounter for screening for malignant neoplasm of prostate; D69.6 Thrombocytopenia, unspecified
CPT/HCPCS: 36415; 80053; 80061; 83036; 84439; 84443; 85025; G0103

== ENCOUNTER → 2025-01-12 12:36 | Outpatient (CLI) | payer MEDICARE, OTHER, SELFPAY ==
[2025-01-12 15:00] LABS: Appearance Urine UA CLEAR; Bilirubin Urine UA NEGATIVE (NEGATIVE); Color Urine UA YELLOW; Glucose Urine UA NEGATIVE (Negative); Ketones Urine UA NEGATIVE (NEGATIVE); Leukocyte Esterase Urine UA NEGATIVE (NEGATIVE); Nitrite Urine UA NEGATIVE (Negative); Occult Blood Urine UA NEGATIVE (Negative); Protein Urine UA NEGATIVE (Negative); Specific Gravity Urine UA 1.020 (1.000-1.035); Urobilinogen Urine UA 0.2 E.U./dL (0.2); pH Urine UA 6.0 (4.5-8.0)
[2025-01-12 15:06] LABS: Culture Indicated Urine Cult Not Indicated
== END ==
PROVIDERS: PCP Family Medicine; Visit Provider Urology
DX: N40.1 Benign prostatic hyperplasia with lower urinary tract symptoms (principal)
CPT/HCPCS: 81001